=== PATIENT | female | born 1940 | race Hispanic/Latino ===

== ENCOUNTER 2019-06-30 12:41 | Outpatient (CLI) | payer MEDICARE ==
[2019-06-30 13:52] LABS: #Basophils 0.1 thou/uL (0.0-0.2); #Eosinphils 0.1 thou/uL (0.0-0.7); #Lymphocytes 2.7 thou/uL (1.20-3.40); #Monocytes 0.5 thou/uL (0.11-0.59); #Neutrophils 7.6 thou/uL (1.40-6.50); %Basophils 0.6 % (0.0-1.0); %Eosinophils 1.2 % (0.0-10.0); %Lymphocytes 24.3 % (21.0-51.0); %Monocytes 4.5 % (0.0-10.0); %Neutrophils 69.4 % (42.0-75.0); Mean Corpuscular HGB CONC 34.3 g/dL (32.0-36.0); Mean Corpuscular Hemoglobin 31.3 pg (27.0-31.0); Mean Corpuscular Volume 91.4 fL (78.0-98.0); Mean Platelet Volume 7.9 fL (7.4-10.4); Platelet Count 189 thou/uL (130-400); RBC Distribution Width 12.7 % (11.5-14.5); Red Blood Cell (RBC) Count 4.14 mill/uL (4.20-5.40); White Blood Cell (WBC) Count 10.9 thou/uL (4.8-10.8)
[2019-06-30 13:56] LABS: INR-International Normal Ratio 1.1; PTT 36.8 SEC (22.9-36.1); Prothrombin Time 14.1 SEC (12.0-14.7)
[2019-06-30 14:15] LABS: ALT (SGPT) 13 U/L (8-55); AST (SGOT) 19 U/L (5-34); Albumin 4.3 g/dL (3.4-4.8); Alkaline Phosphatase 42 U/L (40-110); Anion Gap 13 mmol/L (10-20); BUN (Urea Nitrogen) 13 mg/dL (9.8-20.1); Bilirubin, Total 0.5 mg/dL (0.2-1.2); Calc. Creatinine Clearance 0 mL/min (70-130); Carbon Dioxide 26 mmol/L (23-31); Chloride 99 mmol/L (98-107); Estimated GFR-MDRD Greater than 90; Globulin 3.7 g/dL (2.4-3.5); Glucose 108 mg/dL (83-110); Potassium 4.1 mmol/L (3.5-5.1); Sodium 134 mmol/L (136-145)
--- NOTE | 2019-07-01 23:25 | EKG ---
Test Reason : Blood Pressure : / mmHG Vent. Rate : 075 BPM Atrial Rate : 075 BPM P-R Int : 162 ms QRS Dur : 094 ms QT Int : 384 ms P-R-T Axes : 038 004 080 degrees QTc Int : 428 ms Normal sinus rhythm Normal ECG Confirmed by Isaías RESENDIZ ([id number]) on 07/01/2019 11:25:04 PM Referred By: ROBERTA Confirmed By:Isaías RESENDIZ
== END 2019-06-30 12:42 | disposition home or self-care (01) ==
LOC: LABBT 12:41
PROVIDERS: ATTEND Internal Medicine Cardiovascular Disease
DX: Z01.818 Encounter for other preprocedural examination (principal); I35.0 Nonrheumatic aortic (valve) stenosis
CPT/HCPCS: 80053; 85025; 85610; 85730; 93005; 93010

== ENCOUNTER 2019-07-08 06:57 | Day surgery (SDC) | payer MEDICARE ==
[2019-06-30 12:57] VITALS: BMI 31.3
[2019-07-08] MEDS ORDERED: Lidocaine 1% (PF) 30 ML VIAL ONE (07:58)
[2019-07-08 08:30] LABS: Cardiac Risk 3.6 (Less than 4.5)
[2019-07-08] MEDS ORDERED: Fentanyl 100 MCG/2 ML VIAL ONE (09:41)
[2019-07-08] MEDS ORDERED: Midazolam HCl 2 mg/2 ml Vial ONE (09:41)
[2019-07-08] MEDS ORDERED: Heparin 10,000 UNITS/1 ML VIAL ONE (10:17)
[2019-07-08] MEDS ORDERED: Acetaminophen/Codeine 30-300mg Tablet ONE (13:08)
== END 2019-07-08 16:15 | disposition home or self-care (01) ==
LOC: CCL 06:57
PROVIDERS: ATTEND Internal Medicine Cardiovascular Disease
PROC: 4A023N8 Measurement of Cardiac Sampling and Pressure, Bilateral, Percutaneous Approach (ICD-10-PCS; principal; 2019-07-08)
PROC: B2111ZZ Fluoroscopy of Multiple Coronary Arteries using Low Osmolar Contrast (ICD-10-PCS; 2019-07-08)
DX: I25.10 Atherosclerotic heart disease of native coronary artery without angina pectoris (principal); I35.0 Nonrheumatic aortic (valve) stenosis; I34.2 Nonrheumatic mitral (valve) stenosis; I10 Essential (primary) hypertension; E78.5 Hyperlipidemia, unspecified; E89.0 Postprocedural hypothyroidism; Z79.82 Long term (current) use of aspirin; Z79.899 Other long term (current) drug therapy; Z88.8 Allergy status to other drugs, medicaments and biological substances; Z96.651 Presence of right artificial knee joint
CPT/HCPCS: 76942; 80061; 93460; 93561; 99152; 99153; C1769; J1644; J2001; J2250; J3010

== ENCOUNTER 2020-08-16 16:50 | Inpatient (IN) | payer MEDICARE, MEDICAID ==
[2020-08-16] MEDS ORDERED: Aspirin Chewable 81 MG TAB ONE ×2 (17:34→17:35)
[2020-08-16 17:41] LABS: #Eosinphils 0.1 thou/uL (0.0-0.7); #Lymphocytes 2.8 thou/uL (1.20-3.40); #Monocytes 0.5 thou/uL (0.11-0.59); #Neutrophils 3.7 thou/uL (1.40-6.50); %Basophils 0.2 % (0.0-1.0); %Eosinophils 1.5 % (0.0-10.0); %Lymphocytes 39.3 % (21.0-51.0); %Monocytes 6.5 % (0.0-10.0); %Neutrophils 52.5 % (42.0-75.0); Hemoglobin 12.3 g/dL (12.0-16.0); Mean Corpuscular HGB CONC 34.5 g/dL (32.0-36.0); Mean Corpuscular Hemoglobin 31.4 pg (27.0-31.0); Mean Corpuscular Volume 91.2 fL (78.0-98.0); Platelet Count 174 thou/uL (130-400); RBC Distribution Width 11.8 % (11.5-14.5); Red Blood Cell (RBC) Count 3.93 mill/uL (4.20-5.40)
--- NOTE | 2020-08-16 17:44 | RAD ---
Portable frontal chest radiograph: 08/16/2020 COMPARISON: 07/11/2018 HISTORY: Chest pain FINDINGS: Mild diffuse increased linear interstitial density is noted, stable. Stent material overlie s expected location of the ascending aorta. There is atherosclerotic calcification of the aortic arch. There is stable prominence of the cardiac silhouette. There is no focal consolidation or alveol ar edema. Degenerative changes noted within bilateral shoulders. IMPRESSION: Chronic findings as above. No acute findings.
[2020-08-16 18:04] LABS: ALT (SGPT) 15 U/L (8-55); AST (SGOT) 21 U/L (5-34); Albumin 4.1 g/dL (3.4-4.8); Alkaline Phosphatase 29 U/L (40-110); Anion Gap 14 mmol/L (10-20); BUN (Urea Nitrogen) 14 mg/dL (9.8-20.1); Bilirubin, Total 0.5 mg/dL (0.2-1.2); Calc. Creatinine Clearance 0 mL/min (70-130); Calcium 8.8 mg/dL (7.8-10.44); Carbon Dioxide 30 mmol/L (23-31); Chloride 97 mmol/L (98-107); Estimated GFR-MDRD 75; Globulin 3.2 g/dL (2.4-3.5); Glucose 154 mg/dL (83-110); Potassium 4.8 mmol/L (3.5-5.1); Protein, Total 7.3 g/dL (6.0-8.3); Sodium 136 mmol/L (136-145)
[2020-08-16 18:27] LABS: CKMB 1.8 ng/mL (0-6.6)
[2020-08-16 20:50] LABS: Troponin I Less than 0.010 ng/mL (< 0.028)
[2020-08-16] MEDS ORDERED: Ondansetron ODT 4 MG TAB PO PRN (21:23)
[2020-08-16] MEDS ORDERED: Nitroglycerin 0.4 MG TAB (25 Tab Bottle) SL PRN (21:23)
[2020-08-16] MEDS ORDERED: hydrALAZINE 20 MG/ML VIAL SLOW IVP PRN (21:23)
[2020-08-16] MEDS ORDERED: Acetaminophen 325 MG TAB PO PRN (21:23)
[2020-08-16] MEDS ORDERED: Famotidine 20 MG TAB PO SCH (21:30)
[2020-08-16 23:01] VITALS: BMI 38.4
[2020-08-17 00:13] LABS: Troponin I 0.018 ng/mL (< 0.028)
[2020-08-17] MEDS: Nitroglycerin 2% Ointment 1 INCH/1 GM Packet TOP SCH ×5 (00:24→23:14)
--- NOTE | 2020-08-17 02:04 | HP ---
PRIMARY CARE PHYSICIAN: Dr. Silva. EXECUTIVE DIRECTOR: Dr. Rocha. CHIEF COMPLAINT: Chest pain. HISTORY OF PRESENT ILLNESS: Ms. Ortega is a pleasant 80-year-old female, who has a history of hypertension and hypercholesterolemia. She was in her usual state of health until approximately 2 or 3 days prior to admission. The patient noted that on ambulation, she was having some chest pain off and on. She describes it as a deep pressure in the center of her chest and radiating into her left arm. She noticed it while she was walking in the kitchen, but she was not doing anything strenuous. The pain was primarily in the left arm. There was some shortness of breath as well as some nausea, but no vomiting. The pain only lasted few seconds, but then comes and goes, but she notices it has gotten progressively worse over the last 5 days. The patient also denies any leg pain or leg swelling. As a result of the symptoms, the patient came to the emergency room for evaluation. In the ER, she had a chest x-ray done as well as EKG. EKG did not show any significant changes. However, her troponin was slightly elevated, and given the progressive nature of the pain, she is being admitted for further evaluation and treatment. REVIEW OF SYSTEMS: All systems were reviewed and are negative except for that mentioned in the history of present illness. PAST MEDICAL HISTORY: Significant for hypertension and hypercholesterolemia. PAST SURGICAL HISTORY: She has had a TAVR in [place]. She has also had thyroid surgery, thyroidectomy, carpal tunnel surgery, and right total knee replacement. ALLERGIES: TO GABAPENTIN, LYRICA, AND CYMBALTA, WHICH CAUSES ITCHING. SOCIAL HISTORY: She is , has 5 children, living. She is a nonsmoker and nondrinker and would like to be a full code. FAMILY HISTORY: Significant for heart disease in the sister, mom, and brother. CURRENT MEDICATIONS: Include, 1. Losartan 50 mg p.o. daily. 2. Levothyroxine 100 mcg p.o. daily. 3. Aspirin 81 mg p.o. daily. 4. Lipitor 10 mg p.o. daily. 5. Metoprolol extended release 25 mg daily. PHYSICAL EXAMINATION: GENERAL: She is alert and oriented. She appears to be in no acute distress. VITAL SIGNS: Blood pressure was 127/44, heart rate 62, respiratory rate of 19, temperature is 98.7. HEENT: Pupils are equal, round, and reactive. Extraocular muscles are intact. Her sclerae anicteric. Throat, no erythema, no exudates. NECK: No adenopathy. No bruits. LUNGS: Clear to auscultation. There is no wheezing, no rales, no rhonchi. CARDIOVASCULAR: She has a normal S1 and S2. There is no S3 or S4. No clicks or rubs. She does have a grade 2/6 systolic murmur at the base. ABDOMEN: Soft, nontender, nondistended. Positive for bowel sounds. There is no rebound, no guarding, no organomegaly. EXTREMITIES: There is no calf tenderness, no joint effusions. NEUROLOGIC: Exam is grossly nonfocal. She is moving all extremities. Her muscle strength is 5/5 in both her upper and lower extremities. SKIN AND INTEGUMENT: No skin changes. No rash. LAB RESULTS: White blood cell count is 7, hemoglobin 12.3, hematocrit is 35.8, and platelet count is 174. Sodium 136, potassium 4.8, chloride is 97, CO2 is 30, BUN of 14, creatinine 0.75, glucose is 154. Troponin is 0.030. Natriuretic peptide is 121. On her EKG, sinus rhythm, the rate is in the 70s and there are no ST wave changes. This is by my reading on her chest x-ray. Also, there is mild cardiomegaly, but no evidence of any infiltrate or effusion. ASSESSMENT: 1. This is a pleasant 80-year-old female, who presents with chest pain which is atypical in its description, but it has been progressive and she has a strong family history of coronary artery disease. For this reason, she will be placed in observation. We will get serial cardiac enzymes and get a nuclear stress test. If her troponins become elevated, then we will abort the stress test and defer to Cardiology. Given her history of recent or aortic valve surgery in the last year, we will go ahead and get an echocardiogram. 2. Hypertension. We will reconcile and restart her home medications as well as p.r.n. medicines and we will also place her on aspirin and nitrates as well as deep venous thrombosis and gastrointestinal prophylaxis. Job ID: [id number]
[2020-08-17 03:50] LABS: SARS-CoV-2 MS2 Positive; SARS-CoV-2 N Gene Negative; SARS-CoV-2 S Gene Negative; SARS-CoV-2 by NAA Not Detected (NotDetected); SARS-CoV-2 orf1ab Negative
[2020-08-17 04:57] LABS: #Eosinphils 0.1 thou/uL (0.0-0.7); #Lymphocytes 2.6 thou/uL (1.20-3.40); #Monocytes 0.4 thou/uL (0.11-0.59); #Neutrophils 3.3 thou/uL (1.40-6.50); %Basophils 0.4 % (0.0-1.0); %Eosinophils 1.9 % (0.0-10.0); %Lymphocytes 40.4 % (21.0-51.0); %Monocytes 6.3 % (0.0-10.0); Hemoglobin 11.8 g/dL (12.0-16.0); Mean Corpuscular HGB CONC 33.4 g/dL (32.0-36.0); Mean Corpuscular Hemoglobin 30.8 pg (27.0-31.0); Mean Corpuscular Volume 92.2 fL (78.0-98.0); Mean Platelet Volume 8.2 fL (7.4-10.4); Platelet Count 165 thou/uL (130-400); RBC Distribution Width 11.7 % (11.5-14.5); Red Blood Cell (RBC) Count 3.84 mill/uL (4.20-5.40); White Blood Cell (WBC) Count 6.5 thou/uL (4.8-10.8)
[2020-08-17 05:18] LABS: Anion Gap 12 mmol/L (10-20); BUN (Urea Nitrogen) 14 mg/dL (9.8-20.1); Calc. Creatinine Clearance 109 mL/min (70-130); Calcium 8.7 mg/dL (7.8-10.44); Carbon Dioxide 29 mmol/L (23-31); Cardiac Risk 3.4 (Less than 4.5); Chloride 101 mmol/L (98-107); Cholesterol 151 mg/dl (< 200 Desired); Estimated GFR-MDRD Greater than 90; Glucose 116 mg/dL (83-110); HDL Cholesterol 45 mg/dL (>60 Neg Risk); LDL Cholesterol, Calculated 73 mg/dL; Potassium 4.3 mmol/L (3.5-5.1); Sodium 138 mmol/L (136-145); Triglycerides 167 mg/dL (Less than 150)
[2020-08-17] MEDS: Levothyroxine Sodium 100 MCG TAB PO SCH (06:05)
[2020-08-17] MEDS ORDERED: Atorvastatin Calcium 10 MG TAB PO SCH ×2 (09:00→21:00)
[2020-08-17] MEDS: Enoxaparin Sodium 40 MG/0.4 ML SYRINGE SC SCH (12:20)
[2020-08-17] MEDS: Aspirin 325 mg Enteric Coated Tablet PO SCH (12:20)
[2020-08-17] MEDS: Famotidine 20 MG TAB PO SCH ×2 (12:21→20:31)
[2020-08-17] MEDS: Losartan 25 MG TAB PO SCH (12:21)
--- NOTE | 2020-08-17 15:18 | PDOC.HOSPP ---
- Subjective Encounter Date: 08/17/20 Encounter Time: 15:12 Subjective: Ms. Ortega was seen today in follow-up of chest pain . She has no had any chest pain marilee, and feels much better. No new complaints. - Objective Vital Signs & Weight: Vital Signs (12 hours) Temp Pulse Resp BP BP Pulse Ox 08/17/20 12:07 98.4 F 71 15 124/60 94 L 08/17/20 07:49 98.5 F 71 15 133/60 93 L 08/17/20 04:00 98.5 F 65 14 121/55 L 94 L Weight Weight 199 lb 8.293 oz Result Diagrams: 08/17/20 04:13 08/17/20 04:13 Hospitalist ROS - Medication Medications: Active Medications Generic Name Dose Route Start Last Admin Trade Name Freq PRN Reason Stop Dose Admin Aspirin 325 mg 08/17/20 09:00 08/17/20 12:20 Aspirin 325 Mg Enteric Coated Tablet PO 325 mg DAILY TEREZA Administration Enoxaparin Sodium 40 mg 08/17/20 09:00 08/17/20 12:20 Enoxaparin Sodium 40 Mg/0.4 Ml Syringe SC 40 mg 0900 TEREZA Administration Famotidine 20 mg 08/17/20 09:00 08/17/20 12:21 Famotidine 20 Mg Tab PO 20 mg BID TEREZA Administration Levothyroxine Sodium 100 mcg 08/17/20 06:00 08/17/20 06:05 Levothyroxine Sodium 100 Mcg Tab PO 100 mcg 0600 TEREZA Administration Losartan Potassium 50 mg 08/17/20 09:00 08/17/20 12:21 Losartan 25 Mg Tab PO 50 mg DAILY TEREZA Administration Metoprolol Succinate 25 mg 08/17/20 09:00 08/17/20 12:21 Metoprolol Succinate Xl 25 Mg Tab PO 25 mg DAILY TEREZA Administration Nitroglycerin 0.5 inch 08/17/20 08:00 08/17/20 12:20 Nitroglycerin 2% Ointment 1 Inch/1 Gm Packet TOP 0.5 inch 0800,1600,2359 TEREZA Administration - Exam Eye: PERRL, anicteric sclera Heart: RRR, no gallops, no rubs, normal peripheral pulses, murmur present, II/IV Respiratory: CTAB, no wheezes, no rales, no ronchi, normal chest expansion, no tachypnea, normal percussion Gastrointestinal: soft, non-tender, non-distended, normal bowel sounds, no palpable masses, no hepatomegaly Extremities: no cyanosis, no edema Hosp A/P (1) Chest pain Code(s): R07.9 - CHEST PAIN, UNSPECIFIED Status: Acute (2) Aortic valve replaced Code(s): Z95.2 - PRESENCE OF PROSTHETIC HEART VALVE Status: Acute (3) Hypertension Code(s): I10 - ESSENTIAL (PRIMARY) HYPERTENSION Status: Chronic (4) Hyperlipidemia Code(s): E78.5 - HYPERLIPIDEMIA, UNSPECIFIED Status: Chronic - Plan * Chest pain- stress test is pending * Echo results reviewed , and the aortic valve is functioning well * HTN- blood pressure is stable * dyslipidemia- stable * Home if stress test is negative can be discharged home.
[2020-08-18] MEDS: Levothyroxine Sodium 100 MCG TAB PO SCH (05:22)
[2020-08-18] MEDS: Losartan 25 MG TAB PO SCH (09:25)
[2020-08-18] MEDS: Famotidine 20 MG TAB PO SCH (09:25)
[2020-08-18] MEDS: Enoxaparin Sodium 40 MG/0.4 ML SYRINGE SC SCH (09:25)
[2020-08-18] MEDS: Nitroglycerin 2% Ointment 1 INCH/1 GM Packet TOP SCH (09:25)
[2020-08-18] MEDS: Aspirin 325 mg Enteric Coated Tablet PO SCH (09:25)
--- NOTE | 2020-08-18 10:11 | NM ---
CARDIAC SPECT: HISTORY: A 80-year-old female with chest pain status post TAVR, hypertension, and dyslipidemia. TECHNIQUE: A myocardial perfusion scan was performed using the single-isotope 1-day protocol with 30 mCi Technet ium 99m sestamibi injected intravenously for stress and rest images. Pharmacologic stress with adeno sine was monitored and interpreted by Dr. Kumar. There is homogeneous tracer distribution to the myocardial segments on stress and rest images without fixed or reversible defects. GATED SPECT LVEF: 70%. WALL MOTION EXAM: Normal. IMPRESSION: Normal myocardial perfusion scan. POS: WOLF
--- NOTE | 2020-08-18 11:59 | PDOC.HOSPP ---
- Subjective Encounter Date: 08/18/20 Encounter Time: 11:57 Subjective: Ms. Ortega was seen today in follow-up of chest pain. she says she feels much better today. No new complaints. - Objective Vital Signs & Weight: Vital Signs (12 hours) Temp Pulse Resp BP BP Pulse Ox 08/18/20 07:17 98.0 F 63 15 111/52 L 94 L 08/18/20 04:00 97.6 F 67 16 118/58 L 94 L 08/18/20 01:13 96 Weight Weight 199 lb 4.8 oz Result Diagrams: 08/17/20 04:13 08/17/20 04:13 Hospitalist ROS - Medication Medications: Active Medications Generic Name Dose Route Start Last Admin Trade Name Freq PRN Reason Stop Dose Admin Aspirin 325 mg 08/17/20 09:00 08/18/20 09:25 Aspirin 325 Mg Enteric Coated Tablet PO 325 mg DAILY TEREZA Administration Atorvastatin Calcium 10 mg 08/17/20 21:00 08/17/20 20:30 Atorvastatin Calcium 10 Mg Tab PO 10 mg HS TEREZA Administration Enoxaparin Sodium 40 mg 08/17/20 09:00 08/18/20 09:25 Enoxaparin Sodium 40 Mg/0.4 Ml Syringe SC 40 mg 0900 TEREZA Administration Famotidine 20 mg 08/17/20 09:00 08/18/20 09:25 Famotidine 20 Mg Tab PO 20 mg BID TEREZA Administration Levothyroxine Sodium 100 mcg 08/17/20 06:00 08/18/20 05:22 Levothyroxine Sodium 100 Mcg Tab PO 100 mcg 0600 TEREZA Administration Losartan Potassium 50 mg 08/17/20 09:00 08/18/20 09:25 Losartan 25 Mg Tab PO 50 mg DAILY TEREZA Administration Metoprolol Succinate 25 mg 08/17/20 09:00 08/18/20 09:24 Metoprolol Succinate Xl 25 Mg Tab PO 25 mg DAILY TEREZA Administration Nitroglycerin 0.5 inch 08/17/20 08:00 08/18/20 09:25 Nitroglycerin 2% Ointment 1 Inch/1 Gm Packet TOP 0.5 inch 0800,1600,2359 TEREZA Administration - Exam Eye: PERRL, anicteric sclera Heart: RRR, no murmur, no gallops, no rubs, normal peripheral pulses Respiratory: CTAB, no wheezes, no rales, no ronchi, normal chest expansion Gastrointestinal: soft, non-tender, non-distended, normal bowel sounds, no palpable masses, no hepatomegaly Extremities: no cyanosis, no edema Hosp A/P (1) Chest pain Code(s): R07.9 - CHEST PAIN, UNSPECIFIED Status: Acute (2) Aortic valve replaced Code(s): Z95.2 - PRESENCE OF PROSTHETIC HEART VALVE Status: Acute (3) Hypertension Code(s): I10 - ESSENTIAL (PRIMARY) HYPERTENSION Status: Chronic (4) Hyperlipidemia Code(s): E78.5 - HYPERLIPIDEMIA, UNSPECIFIED Status: Chronic - Plan * Chest pain- stress test was negative * Echo results reviewed , and the aortic valve is functioning well * HTN- blood pressure is stable * She is feeling better today * Stable for discharge home
--- NOTE | 2020-08-18 12:05 | PDOC.DS.DS ---
Provider - Provider Date of Admission: 08/18/20 10:57 Date of Discharge: 08/18/20 Admitting Provider: Sunday Smith MD Primary Care Physician: NO PCP PROVIDER Course - Hospital Course Hospital Course: Ms. Ortega is a 80-year-old female that has a history of hypertension and hypercholesterolemia. She presented to the emergency room with complaints of chest pain which was off and on and only lasting a few seconds. She has a history of having a aortic valve replacement in [place] about a year ago and was concerned about her heart. She came to the emergency room where she was evaluated and found to have a slightly elevated troponin. She was placed in observation and the subsequent troponin levels were normal. Since she has had a history of heart valve replacement an echocardiogram was obtained which showed a normal ejection fraction and a well-functioning aortic valve prosthesis. She also had a nuclear stress test which was negative. And by the following day her symptoms had essentially resolved. Therefore she is being discharged home with no change in her medications. She will need to follow-up with Dr. Miranda in approximately 2 weeks. Pertinent Studies: Stress Test Echocardiogram Resuscitation Status: 08/16/20 19:29 Resuscitation Status Routine Resuscitation Status: FULL: Full Resuscitation - Labs Lab Results: 08/17/20 04:13 08/17/20 04:13 Abnormal Lab Results - Last 48 hrs 08/16/20 17:17: Troponin I 0.030 H 08/16/20 17:17: B-Natriuretic Peptide 121.8 H 08/16/20 17:17: RBC 3.93 L, Hct 35.8 L, MCH 31.4 H 08/16/20 17:17: Chloride 97 L, Alkaline Phosphatase 29 L 08/17/20 04:13: Triglycerides 167 H 08/17/20 04:13: RBC 3.84 L, Hgb 11.8 L, Hct 35.4 L - Physical Exam Vitals: Vital Signs (12 hours) Temp Pulse Resp BP BP Pulse Ox 08/18/20 07:17 98.0 F 63 15 111/52 L 94 L 08/18/20 04:00 97.6 F 67 16 118/58 L 94 L 08/18/20 01:13 96 Weight Weight 199 lb 4.8 oz Physical Exam: The patient was seen and examined on the day of discharge. Problem - Problem (1) Chest pain Code(s): R07.9 - CHEST PAIN, UNSPECIFIED Status: Acute (2) Aortic valve replaced Code(s): Z95.2 - PRESENCE OF PROSTHETIC HEART VALVE Status: Acute (3) Hypertension Code(s): I10 - ESSENTIAL (PRIMARY) HYPERTENSION Status: Chronic (4) Hyperlipidemia Code(s): E78.5 - HYPERLIPIDEMIA, UNSPECIFIED Status: Chronic Plan - Discharge Medications Home Medications: Medication Instructions Recorded Confirmed Type Alendronate Sodium [Fosamax] 70 mg PO Q7DAYS 06/30/19 08/16/20 History Atorvastatin Calcium [Lipitor] 10 mg PO HS 06/30/19 08/16/20 History Levothyroxine Sodium [Synthroid] 100 mcg PO DAILY 06/30/19 08/16/20 History Losartan/Hydrochlorothiazide 1 tab PO DAILY 06/30/19 08/16/20 History [Losartan-Hctz 50-12.5 mg Tab] Aspirin [Aspirin EC] 1 tab PO DAILY 07/08/19 08/16/20 History Cholecalciferol (Vitamin D3) 1,000 unit PO DAILY 07/08/19 08/16/20 History [Vitamin D3] Metoprolol Succinate [Toprol XL] 25 mg PO BID 08/16/20 08/16/20 History Multivitamin [Daily Value] 1 tablet PO DAILY 08/16/20 08/16/20 History Oxybutynin ER [Ditropan XL] 10 mg PO DAILY 08/16/20 08/16/20 History Allergies: gabapentin Allergy (Intermediate, Verified 08/16/20 22:52) Rash pregabalin [From Lyrica] Allergy (Intermediate, Verified 08/16/20 22:52) Rash duloxetine [From Cymbalta] Allergy (Verified 08/16/20 22:52) - Discharge Instructions Activity:: Activity as Tolerated Nourishment:: Heart Healthy Diet - Follow up Plan Referrals: PROVIDER,NO PCP [Primary Care Provider] - Disposition: HOME Quality - Care Measures CORE MEASURES:: N/A
[2020-08-18 12:54] VITALS: BP 137/65; TEMP 97.4
== END 2020-08-18 12:45 | disposition home or self-care (01) | DRG 313 ==
LOC: ERS 16:50 → 2NO 21:23 → OBSVTOIN 08-18 10:57
PROVIDERS: ADMIT Internal Medicine; ATTEND Internal Medicine
DX: R07.9 Chest pain, unspecified (principal); I10 Essential (primary) hypertension; E89.0 Postprocedural hypothyroidism; Z96.651 Presence of right artificial knee joint; E78.5 Hyperlipidemia, unspecified; Z20.828 Contact with and (suspected) exposure to other viral communicable diseases; E78.00 Pure hypercholesterolemia, unspecified; Z95.2 Presence of prosthetic heart valve; Z79.899 Other long term (current) drug therapy; Z88.8 Allergy status to other drugs, medicaments and biological substances; Z98.890 Other specified postprocedural states; Z79.82 Long term (current) use of aspirin; Z79.890 Hormone replacement therapy
CPT/HCPCS: 36415; 71045; 78452; 80048; 80053; 80061; 82553; 83880; 84484; 85025; 87635; 93005; 93017; 93306; 94760; A9500; J1650; U0003